=== PATIENT | male | born 1980 | race Caucasian/White ===

== ENCOUNTER 2022-01-28 15:57 | Emergency (ER) | payer OTHER ==
[2022-01-28] MEDS ORDERED: EPINEPHrine 1 MG/ML SDV IM ONE (16:05)
[2022-01-28] MEDS ORDERED: methylPREDNISolone Sod Succ 1,000 MG in Sodium Chloride 0.9% 16 ML IV ONE (16:05)
[2022-01-28] MEDS ORDERED: Famotidine 20 MG/2 ML SDV IVPUSH ONE (16:05)
[2022-01-28] MEDS ORDERED: methylPREDNISolone Sodium Succinate 125 MG/2 ML SDV IVPUSH ONE (16:09)
== END 2022-01-28 19:07 | disposition home or self-care (01) ==
LOC: MW.ED 15:57
DX: T63.441A Toxic effect of venom of bees, accidental (unintentional), initial encounter (principal); Z91.030 Bee allergy status
CPT/HCPCS: 96372; 96374; 96375; 99282; J0171; J2930; J3490; 99284

== ENCOUNTER 2022-03-23 12:20 | Inpatient (IN) | payer OTHER ==
[2022-03-23] MEDS ORDERED: Iopamidol 755 Mg/ML 100 ML Bottle IV ONE (12:21)
[2022-03-23] MEDS ORDERED: Sodium Chloride 0.9% 1,000 ML IV ONE (12:44)
[2022-03-23] MEDS ORDERED: Morphine 4 MG/ML Syringe IVPUSH ONE (12:45)
[2022-03-23] MEDS ORDERED: Ondansetron 4 MG/2 ML SDV IVPUSH ONE ×2 (12:46→17:00)
[2022-03-23] MEDS ORDERED: Morphine 4 MG/ML Syringe IV ONE (14:26)
[2022-03-23] MEDS ORDERED: Ertapenem 1 GM in Sodium Chloride 0.9% 100 ML IV ONE (16:10)
[2022-03-23] MEDS ORDERED: Bupivacaine 0.5% 30 ML SDV INFILT ONE (16:30)
[2022-03-23] MEDS ORDERED: Lactated Ringers 1,000 ML IV ONE (17:00)
[2022-03-23] MEDS ORDERED: Dexamethasone 4 MG/ML 5 ML MDV IVPUSH ONE (17:00)
[2022-03-23] MEDS ORDERED: Ketorolac 30 MG/ML SDV IVPUSH ONE (17:00)
[2022-03-23] MEDS ORDERED: Midazolam 1 MG/ML 2 ML SDV IVPUSH ONE (17:00)
[2022-03-23] MEDS ORDERED: Sugammadex Sodium 200 MG/2 ML VIAL IV ONE (17:00)
[2022-03-23] MEDS ORDERED: Lidocaine 2% 5 ML SDV INFILT ONE (17:00)
[2022-03-23] MEDS ORDERED: fentaNYL 250 MCG/5 ML SDV IVPUSH ONE (17:00)
[2022-03-23] MEDS ORDERED: Propofol 200 MG/20 ML SDV IVPUSH ONE (17:00)
[2022-03-23] MEDS ORDERED: Rocuronium Bromide 50 MG/5 ML Syringe IVPUSH ONE (17:00)
[2022-03-23] MEDS ORDERED: Ropivacaine 0.5% 5 MG/ML 30 ML SDV INJECT ONE (17:49)
[2022-03-23] MEDS ORDERED: Acetaminophen/HYDROcodone 325-5 MG Tab PO ONE (19:36)
[2022-03-23] MEDS ORDERED: Morphine 2 MG/ML SYRINGE IV ONE (23:58)
[2022-03-24] MEDS ORDERED: Acetaminophen/HYDROcodone 325-5 MG Tab PO ONE ×2 (03:30→09:40)
[2022-03-24] MEDS ORDERED: Lactated Ringers 1,000 ML IV ONE (10:00)
== END 2022-03-24 11:00 | disposition home or self-care (01) | DRG 343 ==
LOC: MW.ED 12:20 → MW.ZCENSUS 17:51
PROC: 0DTJ4ZZ Resection of Appendix, Percutaneous Endoscopic Approach (ICD-10-PCS; principal; 2022-03-23)
DX: K35.80 Unspecified acute appendicitis (principal)
CPT/HCPCS: 00840; 64488; 74177; 74177-26; A9270-GY; J0131; J1100; J1335; J1885; J2250; J2270; J2405; J2704; J2795; J3010; J3490; J7030; J7120; Q9967